=== PATIENT | male | born 1945 | race Caucasian/White ===

== ENCOUNTER 2019-07-13 12:19 | Emergency (ER) | payer MEDICARE ==
[2019-07-13] MEDS ORDERED: Fentanyl 100 MCG/2 ML VIAL ONE ×3 (12:23→15:02)
[2019-07-13] MEDS ORDERED: Ketorolac Tromethamine 30 MG/ML VIAL ONE (12:31)
[2019-07-13] MEDS ORDERED: diphenhydrAMINE 50 MG/ML VIAL ONE (13:16)
[2019-07-13] MEDS ORDERED: Bacitracin 1 PK ONE (14:22)
--- NOTE | 2019-07-13 14:27 | RAD ---
RIGHT LEG 07/13/19 Multiple views were obtained. There is an oblique multipart fracture of the proximal tibial shaft. Th ere is resulting posterior and medial displacement of the proximal portion of the tibia. The fibular head is probably fractured as well, but it is not seen sufficiently on all images to be certain. The distal leg appears intact. IMPRESSION: Oblique displaced fracture of the proximal tibial shaft. Possible fracture of the fibular head. POS: HOME
== END 2019-07-13 13:10 | disposition short-term general hospital (02) ==
LOC: BURERS 12:19
DX: S82.101A Unspecified fracture of upper end of right tibia, initial encounter for closed fracture (principal); S50.811A Abrasion of right forearm, initial encounter; S60.512A Abrasion of left hand, initial encounter; I10 Essential (primary) hypertension; W55.22XA Struck by cow, initial encounter
CPT/HCPCS: 29505; 94760; 96374; 96375; 96376; J1200; J1885; J3010

== ENCOUNTER 2021-12-23 15:06 | Emergency (ER) | payer MEDICARE | END 2021-12-23 16:42 | disposition home or self-care (01) | LOC: BURERS 15:06 | DX: M47.22 Other spondylosis with radiculopathy, cervical region (principal); I10 Essential (primary) hypertension | CPT/HCPCS: 72125 ==